=== PATIENT | female | born 1970 | race Caucasian/White ===

== ENCOUNTER 2021-04-24 13:29 | Emergency (ER) | payer OTHER ==
[~2021-04-24] VITALS: Ht 167.6 cm; Wt 140.6 kg
[2021-04-24 14:01] LABS: Hematocrit 43.2 % (33.0-51.0); Hemoglobin 13.9 g/dL (11.5-16.0); Mean Corpuscular HGB 29.5 pg (26.0-34.0); Mean Corpuscular HGB Conc 32.2 g/dL (31.5-36.5); Mean Corpuscular Volume 92 fL (80-100); Platelet Count 349 K/mm3 (150-400); RDW Coefficient Variation 13.2 % (11.7-14.2); RDW Standard Deviation 44.6 fL (35.1-46.3); Red Blood Cell Count 4.71 M/mm3 (3.80-5.20); White Blood Cell Count 8.26 K/mm3 (4.00-11.30)
[2021-04-24 14:22] LABS: BAND PERCENT MAN 1 % (0-8); BASOPHILS PERCENT MAN 0 % (0-2); EOSINOPHILS PERCENT MAN 0 % (0-6); LYMPHOCYTES % ATYPICAL MANUAL 2 % (0-0); LYMPHOCYTES PERCENT MAN 9 % (21-46); MONOCYTES ABSOLUTE MAN 0.16 K/mm3 (0.16-1.47); MONOCYTES PERCENT MAN 2 % (4-13); NEUTROPHILS ABSOLUTE MAN 7.18 K/mm3 (1.96-9.15); SEG NEUTROPHILS PERCENT MAN 86 % (41-73); TOTAL CELLS COUNTED 100
[2021-04-24 14:37] LABS: Alanine Aminotransfer (ALT/SGP 56 U/L (12-78); Albumin, Blood 2.6 g/dL (3.4-5.0); Albumin/Globulin Ratio 0.5 (0.8-1.8); Alk Phos 74 U/L (50-136); Anion Gap 9 mmol/L (6-16); Aspartate Aminotrans (AST/SGOT 53 U/L (12-37); Bilirubin, Total 0.7 mg/dL (0.1-1.0); Blood Urea Nitrogen 10 mg/dL (8-24); Bun/Creatinine Ratio 14.9 (12.0-20.0); CO2, Blood 24 mmol/L (21-32); Calcium, Blood 8.3 mg/dL (8.5-10.1); Chloride, Blood 99 mmol/L (98-108); Creatinine, Blood 0.67 mg/dL (0.40-1.00); Glomerular Filtration Rate >60 (60-); Glucose, Blood 286 mg/dL (70-99); Potassium, Blood 3.9 mmol/L (3.5-5.5); Sodium, Blood 132 mmol/L (136-145); Total Protein, Blood 7.6 g/dL (6.4-8.2); Troponin I <0.015 ng/mL (0.000-0.040)
[2021-04-24] MEDS ORDERED: METF500 PO (18:54)
[2021-04-24] MEDS ORDERED: DECADRON6 M1 PO (18:54)
== END 2021-04-24 19:33 | disposition home or self-care (01) ==
LOC: ER 13:29
PROVIDERS: Physician Assistant
DX: U07.1 COVID-19 (principal); J12.82 Pneumonia due to coronavirus disease 2019; E11.65 Type 2 diabetes mellitus with hyperglycemia
CPT/HCPCS: 36415; 36430; 71045; 80053; 83036; 84484; 85025; 93005; 93010; 96374; 99285-25; A9270; J1100